=== PATIENT | male | born 1970 | race Native Hawaiian/Other Pacific Islander ===

== ENCOUNTER 2017-01-26 09:40 | Emergency (ER) | payer OTHER ==
[~2017-01-26] VITALS: Ht 172.7 cm; Wt 76.2 kg
[2017-01-26 10:04] LABS: PLATELET COUNT 218 K/uL (142-355)
[2017-01-26 10:10] LABS: POTASSIUM 4.1 mmol/L (3.6-5.2); SODIUM 134 mmol/L (136-145)
[2017-01-26 10:17] LABS: PARTIAL THROMBOPLASTIN TIME 23.4 SECONDS (24.5-33.6)
[2017-01-26 12:15] VITALS: BP 138/75; TEMP 98
== END 2017-01-26 12:15 | disposition short-term general hospital (02) ==
LOC: ED 09:40
PROVIDERS: Emergency Medicine
DX: R07.89 Other chest pain (principal); K29.70 Gastritis, unspecified, without bleeding; B96.81 Helicobacter pylori [H. pylori] as the cause of diseases classified elsewhere
CPT/HCPCS: 36415; 80053; 81000; 82550; 83690; 83880; 84484; 85027; 85610; 85730; 86318; 93005; 96365; 96375; 99284; J1644

== ENCOUNTER 2017-01-26 12:26 | Outpatient (CLI) | payer OTHER | END 2017-01-26 12:56 | disposition short-term general hospital (02) | LOC: AMB 12:26 | DX: R07.89 Other chest pain (principal); K29.70 Gastritis, unspecified, without bleeding; B96.81 Helicobacter pylori [H. pylori] as the cause of diseases classified elsewhere | CPT/HCPCS: A0425; A0427 ==